=== PATIENT | male | born 1970 | race Caucasian/White ===

== ENCOUNTER 2016-12-30 21:53 | Emergency (ER) | payer MEDICAID ==
[~2016-12-30] VITALS: Ht 165.1 cm; Wt 72.2 kg
[~2016-12-30 21:53] MED LIST: FURO-92 PO; HIGH BP MED; HYDR-3343 PO; LISI-170 PO; MAGN400T7 PO; METO50TA82 PO; POTA20TA14 PO; SIMV40TA3 PO
[2016-12-30 22:27] VITALS: BP 156/106
[2016-12-30 23:12] LABS: HEMOGLOBIN 13.7 g/dL (13.7-18.0)
[2016-12-30 23:21] LABS: BLOOD UREA NITROGEN 14 mg/dL (7-18)
[2016-12-30 23:27] LABS: IS PT STATUS REG ER OR PRE ER? YES
== END 2016-12-31 00:50 | disposition home or self-care (01) ==
LOC: ED 23:59
DX: R60.0 Localized edema (principal); E87.6 Hypokalemia; I11.0 Hypertensive heart disease with heart failure; E78.00 Pure hypercholesterolemia, unspecified; F41.1 Generalized anxiety disorder; F10.20 Alcohol dependence, uncomplicated; E11.9 Type 2 diabetes mellitus without complications
CPT/HCPCS: 36415; 71010; 80048; 82040; 83880; 84484; 85025; 85610; 85730; 93005

== ENCOUNTER 2017-08-28 19:41 | Emergency (ER) | payer MEDICAID ==
[~2017-08-28] VITALS: Ht 165.1 cm; Wt 77.1 kg
[2017-08-28 20:21] LABS: HEMATOCRIT 37.2 % (39.2-51.8); HEMOGLOBIN 12.6 g/dL (13.7-18.0); WHITE BLOOD COUNT 7.9 x10^3/uL (3.4-10)
[2017-08-28] MEDS ORDERED: SULFAMETH./TRIMETHOPRIM DS 800MG/160MG TABLET ONE (23:00)
[2017-08-28] MEDS ORDERED: SULFAMETH./TRIMETHOPRIM DS 800MG/160MG TABLET PO ONE (23:00)
[2017-08-28 23:43] VITALS: BP 117/79
== END 2017-08-28 23:45 | disposition home or self-care (01) ==
LOC: ED 22:33
DX: L03.114 Cellulitis of left upper limb (principal); E11.9 Type 2 diabetes mellitus without complications; E78.00 Pure hypercholesterolemia, unspecified; F41.9 Anxiety disorder, unspecified; I10 Essential (primary) hypertension
CPT/HCPCS: 36415; 80307; 84550; 85025; 99285; G0479